=== PATIENT | female | born 1975 | race Caucasian/White ===

== ENCOUNTER 2017-09-02 14:50 | Observation (INO) ==
[2017-09-02 15:12] LABS: Bilirubin,Urine Negative (Negative); Blood,Urine Negative (Negative); Clarity,Urine Clear (Clear); Color,Urine Yellow (Yellow); Glucose,Urine (UA) 500 mg/dL (Normal); Ketones,Urine Negative (Negative); Leukocyte Esterase,Urine Negative (Negative); Nitrite,Urine Negative (Negative); Protein,Urine Negative (Neg-Trace); Specific Gravity,Urine 1.018 (1.010-1.025); Urobilinogen,Urine Normal (Normal)
[2017-09-02 16:13] LABS: Basophils % 0.2 %; Eosinophils % 0.9 %; Hematocrit 39.9 % (35.3-44.9); Immature Granulocytes % 0.2 % (0-4); Lymphocytes # 1.4 K/mcL (0.6-4.6); Lymphocytes % 33.4 %; Mean Corpuscular HGB Conc 35.1 g/dL (31.6-35.5); Mean Corpuscular Hemoglobin 31.5 pg (28.0-33.3); Mean Corpuscular Volume 89.9 fL (83.0-100.0); Mean Platelet Volume 12.1 fL (9.4-12.4); Monocytes # 0.3 K/mcL (0.0-1.3); Monocytes % 6.1 %; Neutrophils # 2.6 K/mcL (1.6-8.9); Platelet Count 88 K/mcL (140-400); Red Blood Count 4.44 M/mcL (3.82-4.97); Red Cell Distribution Width 13.6 % (11.5-14.5); Segmented Neutrophils % 59.2 %
[2017-09-02] MEDS ORDERED: Isovue-370 500 ML INFUS..BTL IV ONE (16:28)
[2017-09-02] MEDS ORDERED: *HR* Morphine 2 MG/ML SYRINGE IVP ONE (16:28)
--- NOTE | 2017-09-02 16:33 | Emergency Department Note ---
Disposition Clinical Impression: Epigastric pain Vomiting Qualifiers: Vomiting type: unspecified Vomiting Intractability: intractable Nausea presence : with nausea Qualified Code(s): R11.2 - Nausea with vomiting, unspecified Diarrhea Qualifiers: Diarrhea type: unspecified type Qualified Code(s): R19.7 - Diarrhea, unspecified Disposition: Admitted As Inpatient Condition: Good Referrals: An Victor [Primary Care Provider] - Forms: ED Satisfaction Letter, Work/School Release Time of Disposition: 19:58 Abdominal Pain HPI - General Chief Complaint: ED Abdominal Pain Stated Complaint: "kidney stones" Time Seen by Provider: 09/02/17 15:44 Source: patient Mode of arrival: ambulatory Limitations: no limitations Nursing Notes Reviewed: Yes Vital Signs Reviewed: Yes - History of Present Illness HPI Narrative: This is a 41-year-old female who complains of nausea with vomiting and diarrhea for the last 14 days. She also states that she was diagnosed with a urinary infection and hospitalist. She saw her urologist today, and was told that if her symptoms did not improve she should come to the emergency department. She states she has had dysuria for 14 days as well. Pain Scale: 10 - Related Data Home Medications Medication Instructions Recorded Confirmed Insulin Glargine,Hum.rec.anlog 20 units SQ HS 11/06/14 08/21/15 [Lantus Solostar] Liraglutide [Victoza 2-[place]] 1.8 mg SQ QAM 11/06/14 08/21/15 Previous Rx's Medication Instructions Recorded Albuterol Sulfate [Albuterol 2 puff IH Q6HR PRN #1 hfa.aer.ad 04/13/16 Inhaler] Benzonatate [Tessalon] 100 - 200 mg PO TID PRN #30 capsule 04/13/16 Cyclobenzaprine [Flexeril] 10 mg PO HS #15 tablet 05/24/17 Ibuprofen [Motrin] 800 mg PO Q8HR #30 tablet 05/24/17 Naproxen [Naprosyn] 250 mg PO BID PRN #6 tablet 08/06/17 Allergies Allergy/AdvReac Type Severity Reaction Status Date / Time cephalexin [From Keflex] Allergy Dry Mucus Verified 08/13/17 17:31 Membranes All systems ED: reviewed and negative except as stated. Review of Systems: As Per HPI Gastrointestinal: Reports: abdominal pain, nausea, vomiting, diarrhea ( Abdominal pain is right upper quadrant, epigastric, and left upper quadrant) Abdominal Pain PMH - Past Medical History Medical history: Reports: arthritis, asthma, cirrhosis, CVA, diabetes, fibromyalgia, GERD, kidney stones, liver disease Female Surgical History: Reports: appendectomy, cholecystectomy, hysterectomy, orthopedic, other OPERATIONAL ASSISTANT history: Reports: no OPERATIONAL ASSISTANT history Psychiatric history: Reports: anxiety, other - Social History Smoking status: Never smoker Alcohol use: Reports: none Drug use: Reports: none Physical Exam - General Limitations: no limitations General appearance: alert, in no apparent distress - Head Head exam: atraumatic, normocephalic, normal inspection - Eye Eye exam: Present: normal appearance, PERRL, EOMI - Neck Neck exam: Present: normal inspection, full ROM, trachea midline - Chest Chest inspection: Present: normal inspection, symmetric chest wall rise - Respiratory Respiratory exam: Present: normal lung sounds bilaterally - Cardiovascular Cardiovascular exam: Present: regular rate, normal rhythm, normal heart sounds - Abdominal Exam Abdominal exam: Present: soft, tenderness Abdominal tenderness: Present: RUQ, LUQ, epigastrium. Absent: RLQ, LLQ, suprapubic - Extremities Exam Extremities exam: Present: normal inspection, full ROM. Absent: tenderness, pedal edema - Back Exam Back exam: Absent: CVA tenderness (R), CVA tenderness (L) - Neurological Exam Neurological exam: Present: alert, oriented X3 - Psychiatric Psychiatric exam: Present: normal affect, normal mood - Skin Skin exam: Present: warm, dry, intact, normal color Course Course Narrative: This is a 41-year-old female with report of nausea, vomiting, diarrhea for 14 days dysuria for the same time. She has right upper quadrant, epigastric, and less left upper quadrant tenderness. Vital Signs Temperature 98.3 F 09/02/17 14:52 Pulse Rate 58 09/02/17 14:52 Respiratory Rate 18 09/02/17 14:52 Blood Pressure 169/89 09/02/17 14:52 O2 Sat by Pulse Oximetry 100 09/02/17 14:52 Temperature 98.3 F 09/02/17 16:24 Pulse Rate 58 09/02/17 16:24 Respiratory Rate 18 09/02/17 16:24 Blood Pressure 169/89 09/02/17 16:24 O2 Sat by Pulse Oximetry 100 09/02/17 16:24 Oxygen Delivery Oxygen Delivery Room Air Abdominal Pain - MDM Narrative Medical decision making narrative: This is a 41-year-old female with complaint of epigastric pain and nausea vomiting and diarrhea for 14 days. She also reports dysuria for 14 days. It turns out she has a very complicated medical history. Labs were pretty unremarkable except for slight hypokalemia of 3.4. No evidence of serious illness or urinary infection CT abdomen/pelvis showed no evidence of ureteral issues and no other acute pathology except for cirrhosis, which she knows about In the context of cirrhosis, loperamide is a poor choice for treatment. I discussed her case with the on-call hospitalist, who accepted her for admission to observation for additional symptomatic treatment - Lab Data Lab results reviewed: Yes I reviewed the patient's lab results. Lab results narrative: CBC was unremarkable BMP shows slight hypokalemia at 3.4 LFT showed AST elevated at 90 a LT elevated at 75 UA showed glucose but no evidence of UTI Result diagrams: 09/02/17 16:00 09/02/17 16:00 Lab Results 09/02/17 09/02/17 09/02/17 Range/Units 15:00 16:00 16:00 WBC 4.3 (4.3-11.1) K/mcL RBC 4.44 (3.82-4.97) M/mcL Hgb 14.0 (11.5-15.4) g/dL Hct 39.9 (35.3-44.9) % MCV 89.9 (83.0-100.0) fL MCH 31.5 (28.0-33.3) pg MCHC 35.1 (31.6-35.5) g/dL RDW 13.6 (11.5-14.5) % Plt Count 88 L (140-400) K/mcL MPV 12.1 (9.4-12.4) fL Immature Gran % 0.2 (0-4) % Seg Neutrophils % 59.2 % Lymphocytes % 33.4 % Monocytes % 6.1 % Eosinophils % 0.9 % Basophils % 0.2 % Neutrophils # 2.6 (1.6-8.9) K/mcL Lymphocytes # 1.4 (0.6-4.6) K/mcL Monocytes # 0.3 (0.0-1.3) K/mcL Eosinophils # 0.0 (0.0-0.6) K/mcL Basophils # 0.0 (0.0-0.2) K/mcL Sodium 136 (136-145) mEq/L Potassium 3.4 L (3.5-5.1) mEq/L Chloride 106 (98-107) mEq/L Carbon Dioxide 25 (23-29) mEq/L BUN 7 (6-20) mg/dL Creatinine 0.66 (0.60-1.20) mg/dL Est GFR ( Amer) > 60 (> 60) Est GFR (Non-Af Amer) > 60 (> 60) BUN/Creatinine Ratio 11 (6-26) Glucose 367 H (70-105) mg/dL Calculated Osmolality 295 (280-300) Calcium 9.1 (8.6-10.3) mg/dL Total Bilirubin 0.7 (0.3-1.0) mg/dL Direct Bilirubin 0.3 H (0.0-0.2) mg/dL Indirect Bilirubin 0.4 (0.0-1.2) mg/dL AST 90 H (13-39) Units/L ALT 75 H (7-52) Units/L Alkaline Phosphatase 124 H (34-104) Units/L Serum Total Protein 6.4 (6.4-8.9) g/dL Albumin 2.9 L (3.5-5.7) g/dL Globulin 3.5 (2.4-3.5) g/dL Albumin/Globulin Ratio 0.8 L (1.1-2.2) Lipase 73 (11-82) Units/L Urine Color Yellow (Yellow) Urine Clarity Clear (Clear) Urine pH 7.0 (5.0-8.0) pH Units Ur Specific [place] 1.018 (1.010-1.025) Urine Protein Negative (Neg-Trace) mg/dL Urine Glucose (UA) 500 H (Normal) mg/dL Urine Ketones Negative (Negative) mg/dL Urine Blood Negative (Negative) Urine Nitrite Negative (Negative) Urine Bilirubin Negative (Negative) Urine Urobilinogen Normal (Normal) mg/dL Ur Leukocyte Esterase Negative (Negative) Ur Culture Indicated? NO (NO) - Radiology Data Radiology results reviewed: Yes I reviewed the patient's radiology results. CT abdomen/pelvis showed tiny stones in the bladder but no evidence of ureteral problems and no other acute process
[2017-09-02 16:47] LABS: Alanine Aminotransferase 75 Units/L (7-52); Albumin 2.9 g/dL (3.5-5.7); Albumin/Globulin Ratio 0.8 (1.1-2.2); Alkaline Phosphatase 124 Units/L (34-104); Aspartate Amino Transferase 90 Units/L (13-39); BUN/Creatinine Ratio 11 (6-26); Bilirubin,Direct 0.3 mg/dL (0.0-0.2); Bilirubin,Indirect 0.4 mg/dL (0.0-1.2); Bilirubin,Total 0.7 mg/dL (0.3-1.0); Blood Urea Nitrogen 7 mg/dL (6-20); Calcium 9.1 mg/dL (8.6-10.3); Carbon Dioxide 25 mEq/L (23-29); Chloride 106 mEq/L (98-107); Globulin 3.5 g/dL (2.4-3.5); Glucose 367 mg/dL (70-105); Lipase 73 Units/L (11-82); Osmolality,Calculated 295 (280-300); Potassium 3.4 mEq/L (3.5-5.1); Sodium 136 mEq/L (136-145); Total Protein 6.4 g/dL (6.4-8.9); eGFR For Non-African Americans > 60 (> 60)
[2017-09-02] MEDS ORDERED: Promethazine 25 MG in 0.9 % Sodium Chloride 50 ML IVPB ONE (19:47)
[2017-09-02] MEDS ORDERED: Ondansetron 4 MG/2 ML VIAL IVP ONE (19:47)
[2017-09-02] MEDS ORDERED: 0.9 % Sodium Chloride 1,000 ML IVC ONE (19:54)
--- NOTE | 2017-09-02 20:21 | Internal Med History&Physical ---
<Carlos Santos - Last Filed: 09/02/17 22:41> Date of Encounter: 09/02/17 Time of Encounter: 20:19 Internal Medicine - H&P: HPI Chief complaint: Abd pain Admitted From: Home History of present illness: Ms. Dasilva is a 41 year old female with a PMH of Lupus, cirrhosis due to REYES, CVA without deficits, diabetes mellitus type 2, fibromyalgia, GERD, kidney stones, and obesity presented c/o rash, chills, lightheadedness, nausea, vomiting, and dysuria for the last 14 days. Pain is intermittent, located in the epigastric and RUQ area, and does not radiate. She reports associated tachycardia, SOB, anorexia, 12 lbs weight loss, and marijuana use daily to help alleviate the symptoms. Hot showers do not help with the nausea and vomiting and patient denies history of cannabinoid cyclic vomiting syndrome in the past. She reports one episode of blood tingled stool and melena. Last EGD revealed esophagitis and she had two colon polyps removed in the past. She no longer takes Prednisone for Lupus due to hyperglycemia and poorly controlled diabetes. The rash is located under her pannus and she denies history of yeast infections in the past from antibiotic uses. Patient also has a smaller abrasion on her right calf from a cat scratch. Her cat is vaccinated. She was reportedly diagnosed with a urinary infection by her urologist, stopped Bactrim after 3 doses due to vomiting, and was told that if her symptoms did not improve she should come to the emergency department. Patient denies fever, CP, hematemsis, recent travel, sick contacts, or leg edema. Past Med Surg Social Fam HX - Past Medical History Medical history: arthritis, asthma, cirrhosis (REYES), CVA, diabetes (DM Type 2) , fibromyalgia, GERD, kidney stones, liver disease Additional medical history: lupus Psychiatric history: anxiety, other - Past Surgical History Surgical History: appendectomy, cholecystectomy, hysterectomy, other Additional surgical history: tumor removed from neck - Social History Smoking Status: Former smoker (quit in 2013) Smokeless Tobacco Status: No Alcohol use: none (quit in 2015) Drug use: marijuana (Daily) Occupational status: disabled (Due to Lupus) Current living situation: Home, With Family Activity Level: Independent ambulation Recent Out of Country Travel Within the Last 8 Weeks: No Exposure or Possible Exposure to Illness During Travel: No - Family History Mother Living Status: Hx Family Cardiac Disorders: Yes (CAD) Hx Family Endocrine Disorder: Yes (thyroid) Hx Family Medical Disorders: Yes (REYES) Father Hx Family Cardiac Disorders: Yes (CAD) Hx Family Respiratory Disorders: Yes (COPD) Hx Family Medical Disorders: Yes (Prostate) Internal Medicine - H&P: Meds RX: No Known Home Drugs 09/02/17 [History] 3 Allergy/AdvReac Type Severity Reaction Status Date / Time cephalexin [From Keflex] Allergy Dry Mucus Verified 08/13/17 17:31 Membranes All Systems PM: A 10-system review of systems was performed and is negative for pertinent findings except as documented above in the HPI. - Constitutional Constitutional: anorexia, chills, fatigue, lethargy, weakness, weight loss (12 lbs), no fever(s) - EENT Eyes: no blurry vision, no diplopia Nose, mouth and throat: no sinus pain, no sore throat - Cardiovascular Cardiovascular ROS IM: dyspnea, lightheadedness, palpitations, no chest pain, no edema, no syncope - Respiratory Respiratory: dyspnea, no cough, no wheezing - Gastrointestinal Gastrointestinal: abdominal pain, cramping, diarrhea, heartburn, hematochezia, melena, nausea, vomiting, no constipation, no hematemesis - Genitourinary Genitourinary: dysuria, no hematuria, no urinary frequency, no urinary urgency Menstruation: post hysterectomy - Musculoskeletal Musculoskeletal ROS IM: no arthralgias, no limited range of motion, no numbness , no tingling - Integumentary Integumentary IM: erythema, new lesions, rash, no skin ulcer - Neurological Neurological ROS: dizziness, weakness, no abnormal gait, no numbness, no tingling - Psychiatric Psychiatric: no anxiety, no depression - Endocrine Endocrine IM: fatigue, no flushing, no polyphagia, no polyuria - Hematologic/Lymphatic Hematologic/Lymphatic: no easy bleeding, no easy bruising - Constitutional Vitals: Temp Pulse Resp BP Pulse Ox 98.3 F 58 18 169/89 100 09/02/17 16:24 09/02/17 16:24 09/02/17 16:24 09/02/17 16:24 09/02/17 16:24 General appearance: Present: cooperative, A&O X 3, pleasant, no acute distress, obese, answers questions appropriately - Head Head exam: Present: atraumatic, normocephalic - Eye Eye exam: Present: EOMI, conjuntiva pink, sclera anicteric - ENT ENT exam: Present: mucous membranes dry, normal oropharynx - Neck Neck exam general surgery: Present: supple, trachea midline. Absent: lymphadenopathy - Respiratory Respiratory exam: Present: CTAB. Absent: accessory muscle use, rales, rhonchi, wheezes - Cardiovascular Cardiovascular exam: Present: RRR, +S1, +S2. Absent: diastolic murmur, gallop, rubs, systolic murmur - GI/Abdominal GI/Abdominal exam: Present: guarding, normal bowel sounds, soft, tenderness ( epigastric), no peritoneal signs. Absent: distended - Extremities Exam Extremities exam: Present: warm, radial pulses palpable and symmetrical. Absent : calf tenderness, cyanotic, pedal edema - Back Exam Back exam: Present: normal inspection. Absent: paraspinal tenderness, tenderness - Neurological Exam Neurological exam: Present: alert, CN II-XII intact, oriented X3, no focal deficits. Absent: pronater drift, facial droop, speech deficit - Psychiatric Psychiatric exam: Present: normal affect, normal mood - Skin Skin exam: Present: erythema (foul smelling eythema under pannus/ suprapubic region, small area of erythema right anterior levy without swelling or proximal streaking, erythemaous patches on left face ) Internal Med - H&P Results - Labs CBC & Chem 7: 09/02/17 16:00 09/02/17 16:00 - Pulse Oximetry Interpretation Digit-Finger O2 Sat by Pulse Oximetry: 100 (On room air) - Impressions ITS Impressions Abdomen/Pelvis CT 09/02/17 16:28 IMPRESSION: Nodular contour of liver consistent with cirrhosis. Portal venous hypertension with mild splenomegaly and upper abdominal varices. Tiny bilateral nonobstructing renal calculi. No acute obstructive uropathy. 2.6 cm cyst/ dominant follicle in the left ovary. D/ / Hong Palomino MD / Hong Palomino MD Interpreting Provider: Hong Palomino MD - Assessment and plan (1) Cannabinoid hyperemesis syndrome Current Visit: Yes Status: Suspected Assessment and plan: Patient presents with nausea and vomiting for the last 14 days. Pain is located in the epigastric and RUQ area, and does not radiate. She reports associated marijuana use daily to help alleviate the symptoms. Hot showers do not help with the nausea and vomiting Patient denies history of cannabinoid cyclic vomiting syndrome in the past. Continue IV hydration Continue Phenergan IV Trial Haldol Continue close monitoring (2) Liver cirrhosis secondary to nonalcoholic steatohepatitis (REYES) Current Visit: No Status: Chronic Assessment and plan: LFTs elevated Continue monitoring (3) GERD (gastroesophageal reflux disease) Current Visit: Yes Status: Chronic Assessment and plan: Last EGD revealed esophagitis Continue PPI Qualifiers: Esophagitis presence: with esophagitis Qualified Code(s): K21.0 - Gastro- esophageal reflux disease with esophagitis (4) Yeast infection of the skin Current Visit: Yes Status: Acute Assessment and plan: Foul smelling eythematous region under pannus/ suprapubic region Patient reports recent antibiotic use Start Nystatin TID (5) SLE (systemic lupus erythematosus) Current Visit: No Status: Chronic Assessment and plan: Patient stopped Prednisone use for lupus secondary to hyperglycemia Continue monitoring Qualifiers: Systemic lupus erythematosus type: unspecified Systemic lupus erythematosus organ involvement: unspecified Qualified Code(s): M32.9 - Systemic lupus erythematosus, unspecified (6) DM type 2 (diabetes mellitus, type 2) Current Visit: Yes Status: Acute Assessment and plan: Hemoglobin A1c level 10.2% on 08/21/15 Repeat hemoglobin A1c level pending Patient stopped Prednisone use for lupus secondary to hyperglycemia Continue basal and SSI Continue D5 + normal saline while NPO status Accu-Cheks every 6 hours Continue monitoring Qualifiers: Diabetes mellitus skilled nursing insulin use: unspecified skilled nursing insulin use status Diabetes mellitus complication status: without complication Qualified Code(s): E11.9 - Type 2 diabetes mellitus without complications (7) Fibromyalgia Current Visit: No Status: Chronic Assessment and plan: Outpatient monitoring (8) History of CVA (cerebrovascular accident) without residual deficits Current Visit: No Status: Chronic Assessment and plan: Continue monitoring (9) History of kidney stones Current Visit: No Status: Chronic Assessment and plan: CT abdomen/pelvis revealed tiny bilateral nonobstructing renal calculi. No acute obstructive uropathy. (10) Hypophosphatemia Current Visit: Yes Status: Acute Assessment and plan: Phosphorus level 2.1 Supplemental phosphorus Continue monitoring (11) Hypomagnesemia Current Visit: Yes Status: Acute Assessment and plan: Mag level 1.6 Supplement magnesium Continue monitoring (12) Obesity (BMI 30-39.9) Current Visit: Yes Status: Chronic Assessment and plan: Lifestyle modification (13) DVT prophylaxis Current Visit: Yes Status: Acute Assessment and plan: Heparin subcutaneous TID (14) Hypokalemia Current Visit: Yes Status: Acute Assessment and plan: Potassium level 3.4 Supplement potassium Continue monitoring - Time Spent With Patient Total time spent is greater than 50% in coordination of care (as documented) at patient's floor/unit and/or counseling patient: <Robb Tran P - Last Filed: 09/03/17 00:36> Date of Encounter: 09/03/17 Internal Medicine - H&P: HPI History of present illness: Ms. Dasilva is a 41 year old female All Systems PM: A 10-system review of systems was performed and is negative for pertinent findings except as documented above in the HPI. - Constitutional Vitals: Temp Pulse Resp BP Pulse Ox 98.3 F 58 14 131/79 97 09/02/17 21:07 09/02/17 21:07 09/02/17 21:07 09/02/17 21:07 09/02/17 21:07 Internal Med - H&P Results - Labs CBC & Chem 7: 09/02/17 16:00 09/02/17 16:00 Labs: Cardiac Enzymes 09/02/17 Range/Units 22:30 Troponin I < 0.03 (< 0.04) ng/mL - Attending Attestation I have seen the patient and performed my own physical examination. I have discussed the case with the admitting resident, and I agree with his assessment and plan of care as documented in his H&P. Briefly, patient admitted for 2- week history of nausea, vomiting, and diarrhea. She recently completed antibiotic course for UTI. She has had some anorexia. She has a history of daily marijuana use. She had single episode of blood tinged sputum and melena. At the time of my examination, patient was resting comfortably in bed. She states that abdominal pain is improved with analgesics. She denies any nausea/ vomiting at this time. We will admit for observation. We will continue pain control with analgesics and nausea/vomiting control with anti-emetics. We will start of PPI. We will obtain hemoccult. She had some hyperglycemia, hypokalemia, hypophosphatemia, and hypomagnesemia. We will start home insulin regimen with sliding scale and replete electrolytes. We will recheck labwork in AM. Consider GI consult in AM if no improvement in symptoms. - Assessment and plan (1) SLE (systemic lupus erythematosus) Current Visit: No Status: Chronic Qualifiers: Systemic lupus erythematosus type: unspecified Systemic lupus erythematosus organ involvement: unspecified Qualified Code(s): M32.9 - Systemic lupus erythematosus, unspecified (2) Liver cirrhosis secondary to nonalcoholic steatohepatitis (REYES) Current Visit: No Status: Chronic (3) History of CVA (cerebrovascular accident) without residual deficits Current Visit: No Status: Chronic (4) DM type 2 (diabetes mellitus, type 2) Current Visit: Yes Status: Acute Qualifiers: Diabetes mellitus watermelon harvesting supervisor insulin use: unspecified skilled nursing insulin use status Diabetes mellitus complication status: without complication Qualified Code(s): E11.9 - Type 2 diabetes mellitus without complications (5) Fibromyalgia Current Visit: No Status: Chronic (6) GERD (gastroesophageal reflux disease) Current Visit: Yes Status: Chronic Qualifiers: Esophagitis presence: with esophagitis Qualified Code(s): K21.0 - Gastro- esophageal reflux disease with esophagitis (7) History of kidney stones Current Visit: No Status: Chronic (8) Obesity (BMI 30-39.9) Current Visit: Yes Status: Chronic (9) DVT prophylaxis Current Visit: Yes Status: Acute (10) Cannabinoid hyperemesis syndrome Current Visit: Yes Status: Suspected (11) Yeast infection of the skin Current Visit: Yes Status: Acute (12) Hypophosphatemia Current Visit: Yes Status: Acute (13) Hypomagnesemia Current Visit: Yes Status: Acute (14) Hypokalemia Current Visit: Yes Status: Acute - Time Spent With Patient Total time spent is greater than 50% in coordination of care (as documented) at patient's floor/unit and/or counseling patient:
[2017-09-02] MEDS ORDERED: Famotidine 20 MG TABLET PO SCH (21:00)
[2017-09-02] MEDS ORDERED: Haloperidol Lactate 5 MG/ML VIAL IVP ONE (21:11)
[2017-09-02] MEDS ORDERED: Dextrose Gel 15 GM/37.5 ML TUBE PO PRN ×2 (21:11)
[2017-09-02] MEDS ORDERED: D5% in Water 1,000 ML IVC PRN (21:11)
[2017-09-02] MEDS ORDERED: Naloxone 0.4 MG/ML INJ IVP PRN (21:11)
[2017-09-02] MEDS ORDERED: *HR* Dextrose 50 % in Water (Syg) 50 ML SYRINGE IVP PRN (21:11)
[2017-09-02] MEDS ORDERED: Acetaminophen 325 MG TABLET PO PRN (21:11)
[2017-09-02] MEDS ORDERED: Potassium Chloride 40 MEQ, Lidocaine 1% 2 ML in D5% in Water 500 ML IVPB ONE (21:20)
[2017-09-02 21:39] LABS: Magnesium 1.6 mg/dL (1.6-2.6); Phosphorous 2.1 mg/dL (2.7-4.5)
[2017-09-02 21:59] LABS: Estimated Average Glucose 266 mg/dl; Hemoglobin A1C 10.9 %
[2017-09-02] MEDS: *HR* Heparin 5,000 UNIT/ML VIAL SQ SCH (22:32)
[2017-09-02] MEDS: Nystatin POWDER 30 GM BOTTLE TP SCH (22:36)
[2017-09-02] MEDS: Insulin DETEMIR 100 UNIT/ML X5UNITS SQ SCH (22:56)
[2017-09-02] MEDS: OXYCODONE Oral CONC 10 MG/0.5 ML ORAL.SYG SL PRN (23:13)
[2017-09-03] MEDS: Insulin LISPRO 300 UNITS/3 ML VIAL SQ SCH ×5 (00:51→22:27)
[2017-09-03 06:26] LABS: Red Cell Distribution Width 13.9 % (11.5-14.5)
[2017-09-03] MEDS: OXYCODONE Oral CONC 10 MG/0.5 ML ORAL.SYG SL PRN ×2 (06:26→13:40)
[2017-09-03 06:28] LABS: Hemoglobin 13.4 g/dL (11.5-15.4); Immature Platelets 10.1 % (1.1-6.1); Mean Corpuscular HGB Conc 35.3 g/dL (31.6-35.5); Mean Corpuscular Hemoglobin 32.8 pg (28.0-33.3); Mean Corpuscular Volume 93.1 fL (83.0-100.0); Mean Platelet Volume 12.8 fL (9.4-12.4); Red Blood Count 4.08 M/mcL (3.82-4.97)
[2017-09-03] MEDS: *HR* Heparin 5,000 UNIT/ML VIAL SQ SCH ×3 (06:29→22:29)
[2017-09-03] MEDS: Pantoprazole 40 MG VIAL IVP SCH ×2 (06:30→18:32)
[2017-09-03 06:48] LABS: Troponin I < 0.03 ng/mL (< 0.04)
[2017-09-03 06:50] LABS: Alanine Aminotransferase 70 Units/L (7-52); Albumin 2.6 g/dL (3.5-5.7); Albumin/Globulin Ratio 0.9 (1.1-2.2); Alkaline Phosphatase 110 Units/L (34-104); Aspartate Amino Transferase 89 Units/L (13-39); BUN/Creatinine Ratio 10 (6-26); Bilirubin,Total 0.7 mg/dL (0.3-1.0); Blood Urea Nitrogen 6 mg/dL (6-20); Calcium 8.3 mg/dL (8.6-10.3); Carbon Dioxide 22 mEq/L (23-29); Chloride 112 mEq/L (98-107); Glucose 154 mg/dL (70-105); Osmolality,Calculated 287 (280-300); Potassium 3.8 mEq/L (3.5-5.1); Sodium 138 mEq/L (136-145); Total Protein 5.6 g/dL (6.4-8.9); eGFR For Non-African Americans > 60 (> 60)
[2017-09-03] MEDS ORDERED: Famotidine 20 MG TABLET PO SCH (09:00)
[2017-09-03] MEDS: Nystatin POWDER 30 GM BOTTLE TP SCH ×3 (10:11→22:28)
[2017-09-03 13:05] LABS: Bilirubin,Urine Negative (Negative); Blood,Urine Negative (Negative); Color,Urine Yellow (Yellow); Glucose,Urine (UA) Normal (Normal); Ketones,Urine Negative (Negative); Leukocyte Esterase,Urine Negative (Negative); Nitrite,Urine Negative (Negative); Protein,Urine Negative (Neg-Trace); Specific Gravity,Urine 1.021 (1.010-1.025); Urobilinogen,Urine Normal (Normal)
[2017-09-03 13:07] LABS: Bacteria,Urine Few per hpf (None-Few); Hyaline Casts,Urine None Seen per lpf (None-Few); Squamous Epithelial Cell,Urine Many per lpf (None-Few)
[2017-09-03 13:08] LABS: Clarity,Urine Clear (Clear)
--- NOTE | 2017-09-03 14:07 | Event Note ---
Date of Encounter: 09/03/17 Time of Encounter: 12:30 I have performed a face- to face examination of this patient and participated in formulation of randolph components of Assessment and plan with the [employer]. Review this is a 41-year-old female who has a long-standing history of lupus and nonalcoholic steatohepatitis, with early evidence of cirrhotic changes and a recent EGD about 2 months ago which did not show any evidence of variceal changes who came in for nausea and vomiting which has been going on for last 2 weeks duration. On examination she has mild tenderness to palpation diffusely on her abdomen and appears visibly upset due to ongoing nausea. She also has a history of nonobstructing renal calculi which she has been seeing a urologist for. Patient has at least 3 factors that are contributing to her chronic and worsening hyperemesis-uncontrolled diabetes because of inability to afford the medication with potentially an element of gastroparesis, potentially underlying gastroesophageal reflux disease, early stages of liver cirrhosis and multiple years of cannabinoid use to name a few Her last HbA1c is 10. Patient has not been able to afford her Lantus or endochondroma for many months and is now not on any form of insulin. 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 I doubt there is a underlying sepsis source at this point but we will await urine culture and urinalysis in detail .for now and monitor off antibiotics Rest of the assessment and plan as per nurse practitioner documentation-please refer to the full note from today dated 09/03/2017
--- NOTE | 2017-09-03 14:34 | Internal Med Progress Note ---
Date of Encounter: 09/03/17 Time of Encounter: 14:29 - Assessment and plan (1) Cannabinoid hyperemesis syndrome Current Visit: Yes Status: Suspected Assessment and plan: 41-year-old female with past medical history poorly controlled diabetes mellitus SLE, fibromyalgia, kidney stone, GERD, liver cirrhosis secondary to Reyes, and chronic use of marijuana presented with two-week history of nausea, vomiting, and abdominal pain. Patient firmly believes her symptoms were attributed to kidney stones, was seen by a urologist yesterday and was instructed to come to the ED if symptoms get worse. CT abdomen was done at the ED which revealed liver cirrhosis, and multiple tiny renal stones. She does report a history of chronic use and marijuana. She was also concerned that Lupus was flared up as she noticed rash on her face. She had the GI workup including EGD and colonoscopy within 3 months which she reported were insignificant. - Cannabinoid hyperemesis syndrome was suspected, however, patient reported never had symptoms until recently. - Given her long-term uncontrolled diabetes, gastroparesis was suspected, we will try regular and monitor symptoms relief, may consult GI for further workup. - Continue supportive care including IV fluid, medications for nausea/vomiting. (2) SLE (systemic lupus erythematosus) Current Visit: No Status: Chronic Assessment and plan: Patient stopped Prednisone use for lupus secondary to hyperglycemia She was instructed to follow-up with her rheumatology. Qualifiers: Systemic lupus erythematosus type: unspecified Systemic lupus erythematosus organ involvement: unspecified Qualified Code(s): M32.9 - Systemic lupus erythematosus, unspecified (3) Liver cirrhosis secondary to nonalcoholic steatohepatitis (REYES) Current Visit: No Status: Chronic Assessment and plan: LFTs elevated. She has had a sawmill or timber yard worker at the [facility] whom she usually follows with. She may benefit from statins, actos, and Vit E for slowing the liver fibrosis process by REYES, although there is no strong evidences per current clinical study. (4) History of CVA (cerebrovascular accident) without residual deficits Current Visit: No Status: Chronic Assessment and plan: Continue monitoring (5) DM type 2 (diabetes mellitus, type 2) Current Visit: Yes Status: Acute Assessment and plan: A1c 10.9 and she reported recent use of steroid. continue home insulin dose and started on insulin sliding scale. Pt instructed to check BG at home and f/u with PCP for optimal control. Qualifiers: Diabetes mellitus dedicated intermodal truck driver insulin use: unspecified dedicated intermodal truck driver insulin use status Diabetes mellitus complication status: without complication Qualified Code(s): E11.9 - Type 2 diabetes mellitus without complications (6) Fibromyalgia Current Visit: No Status: Chronic Assessment and plan: Outpatient monitoring (7) GERD (gastroesophageal reflux disease) Current Visit: Yes Status: Chronic Assessment and plan: Last EGD revealed esophagitis Continue PPI Qualifiers: Esophagitis presence: with esophagitis Qualified Code(s): K21.0 - Gastro- esophageal reflux disease with esophagitis (8) History of kidney stones Current Visit: No Status: Chronic Assessment and plan: CT abdomen/pelvis revealed tiny bilateral nonobstructing renal calculi. No acute obstructive uropathy. (9) Obesity (BMI 30-39.9) Current Visit: Yes Status: Chronic Assessment and plan: Lifestyle modification (10) Yeast infection of the skin Current Visit: Yes Status: Acute (11) Hypophosphatemia Current Visit: Yes Status: Resolved (12) Hypomagnesemia Current Visit: Yes Status: Resolved (13) Hypokalemia Current Visit: Yes Status: Resolved (14) DVT prophylaxis Current Visit: Yes Status: Acute Assessment and plan: Heparin subcutaneous TID - Time Spent With Patient Total time spent is greater than 50% in coordination of care (as documented) at patient's floor/unit and/or counseling patient: - Subjective Interval history: Pt seen and examined with in the room. She is upset and unhappy that nothing has been done for her abdominal pain and nausea/ vomiting. She just saw the Urologist yesterday for her kidney stone and was instructed to go to ED if abd pain persists. She reported a hx of struvite kidney stone and insisted that she is having UTI. She firmly believes that all her symptoms were caused by kidney stone and she reported recent passage a stone which she showed me a picture. - Constitutional Vitals: Temp Pulse Resp BP Pulse Ox 97.9 F 62 16 107/68 97 09/03/17 12:04 09/03/17 12:04 09/03/17 12:04 09/03/17 12:04 09/03/17 12:04 General appearance: Present: cooperative, A&O X 3, pleasant, no acute distress, obese, answers questions appropriately Exam: PHYSICAL EXAMINATION: GENERAL APPEARANCE: The patient is alert, oriented and in no acute distress. HEENT: Head is normocephalic. The sinuses are nontender. Pupils are equal and reactive. The nares are patent. Oropharynx clear without lesions. NECK: Supple without lymphadenopathy. HEART: Regular rate and rhythm. LUNGS: No crackles or wheezes are heard. ABDOMEN: Soft, nontender, nondistended with good bowel sounds heard. Inguinal area is normal. EXTREMITIES: Without cyanosis, clubbing or edema. NEUROLOGICAL: Gross nonfocal. SKIN: Warm and dry without any rash. Internal Medicine: Result - Labs CBC & Chem 7: 09/03/17 05:40 09/03/17 05:40 Labs: Short CBC 09/03/17 Range/Units 05:40 WBC 4.4 (4.3-11.1) K/mcL Hgb 13.4 (11.5-15.4) g/dL Hct 38.0 (35.3-44.9) % Plt Count 73 L (140-400) K/mcL BMP 09/03/17 05:40 Sodium 138 Potassium 3.8 Chloride 112 H Carbon Dioxide 22 L BUN 6 Creatinine 0.63 Glucose 154 H Calcium 8.3 L Cardiac Enzymes 09/02/17 09/03/17 Range/Units 22:30 05:40 Troponin I < 0.03 < 0.03 (< 0.04) ng/mL Liver Function 09/03/17 Range/Units 05:40 Total Bilirubin 0.7 (0.3-1.0) mg/dL AST 89 H (13-39) Units/L ALT 70 H (7-52) Units/L Alkaline Phosphatase 110 H (34-104) Units/L Albumin 2.6 L (3.5-5.7) g/dL Urine 09/03/17 Range/Units 12:47 Urine Color Yellow (Yellow) Urine Clarity Clear (Clear) Urine pH 6.0 (5.0-8.0) pH Units Ur Specific [place] 1.021 (1.010-1.025) Urine Protein Negative (Neg-Trace) mg/dL Urine Glucose (UA) Normal (Normal) mg/dL Consult Discharge Plan - Plan Referrals: An Victor [Primary Care Provider] -
[2017-09-03] MEDS: Metoclopramide 10 MG/2 ML VIAL IVP SCH ×2 (16:45→22:28)
[2017-09-03] MEDS: Ketorolac 15 MG/ML VIAL IVP PRN (18:31)
[2017-09-03] MEDS: Mag Hydrox/Al Hydrox/Simeth 30 ML UDC PO SCH (18:31)
[2017-09-03] MEDS: Insulin DETEMIR 100 UNIT/ML X5UNITS SQ SCH (22:27)
[2017-09-04] MEDS: Mag Hydrox/Al Hydrox/Simeth 30 ML UDC PO SCH ×4 (00:13→17:20)
[2017-09-04 06:46] LABS: Hematocrit 41.1 % (35.3-44.9)
[2017-09-04 06:48] LABS: Basophils % 0.6 %; Eosinophils # 0.1 K/mcL (0.0-0.6); Eosinophils % 1.9 %; Hemoglobin 14.6 g/dL (11.5-15.4); Immature Granulocytes % 1.3 % (0-4); Immature Platelets 10.5 % (1.1-6.1); Lymphocytes # 1.9 K/mcL (0.6-4.6); Lymphocytes % 41.3 %; Mean Corpuscular HGB Conc 35.5 g/dL (31.6-35.5); Mean Corpuscular Hemoglobin 32.7 pg (28.0-33.3); Mean Corpuscular Volume 91.9 fL (83.0-100.0); Mean Platelet Volume 12.3 fL (9.4-12.4); Monocytes # 0.3 K/mcL (0.0-1.3); Monocytes % 6.9 %; Red Blood Count 4.47 M/mcL (3.82-4.97); Red Cell Distribution Width 13.8 % (11.5-14.5)
[2017-09-04 06:52] LABS: Neutrophils # 2.3 K/mcL (1.6-8.9); Platelet Count 63 K/mcL (140-400)
[2017-09-04] MEDS: *HR* Heparin 5,000 UNIT/ML VIAL SQ SCH ×3 (06:52→22:02)
[2017-09-04] MEDS: Pantoprazole 40 MG VIAL IVP SCH ×2 (06:53→17:19)
[2017-09-04] MEDS: Ketorolac 15 MG/ML VIAL IVP PRN ×3 (06:53→22:10)
[2017-09-04] MEDS: OXYCODONE Oral CONC 10 MG/0.5 ML ORAL.SYG SL PRN (06:53)
[2017-09-04] MEDS: Insulin LISPRO 300 UNITS/3 ML VIAL SQ SCH ×4 (08:12→22:12)
[2017-09-04] MEDS: Metoclopramide 10 MG/2 ML VIAL IVP SCH ×2 (08:13→22:02)
[2017-09-04] MEDS: Nystatin POWDER 30 GM BOTTLE TP SCH ×3 (08:13→22:06)
[2017-09-04 09:07] LABS: BUN/Creatinine Ratio 12 (6-26); Blood Urea Nitrogen 7 mg/dL (6-20); Calcium 7.9 mg/dL (8.6-10.3); Carbon Dioxide 20 mEq/L (23-29); Chloride 112 mEq/L (98-107); Glucose 116 mg/dL (70-105); Osmolality,Calculated 283 (280-300); Sodium 137 mEq/L (136-145); eGFR For Non-African Americans > 60 (> 60)
--- NOTE | 2017-09-04 11:13 | Internal Med Progress Note ---
Date of Encounter: 09/04/17 Time of Encounter: 11:10 - Assessment and plan (1) Cannabinoid hyperemesis syndrome Current Visit: Yes Status: Suspected Assessment and plan: 41-year-old female with past medical history poorly controlled diabetes mellitus SLE, fibromyalgia, kidney stone, GERD, liver cirrhosis secondary to Reyes, and chronic use of marijuana presented with two-week history of nausea, vomiting, and abdominal pain. Patient firmly believes her symptoms were attributed to kidney stones, was seen by a urologist yesterday and was instructed to come to the ED if symptoms get worse. CT abdomen was done at the ED which revealed liver cirrhosis, and multiple tiny renal stones. She does report a history of chronic use and marijuana. She was also concerned that Lupus was flared up as she noticed rash on her face. She had the GI workup including EGD and colonoscopy within 3 months which she reported were insignificant. - Cannabinoid hyperemesis syndrome was suspected, however, patient reported never had symptoms until recently. - Given her long-term uncontrolled diabetes, gastroparesis was suspected, symptoms partially relieved with IV regular. GI consult for workup of gastroparesis. - Continue supportive care including IV fluid, medications for nausea/vomiting. (2) SLE (systemic lupus erythematosus) Current Visit: No Status: Chronic Assessment and plan: Patient stopped Prednisone use for lupus secondary to hyperglycemia. She was instructed to follow-up with her rheumatology. Qualifiers: Qualified Code(s): M32.9 - Systemic lupus erythematosus, unspecified (3) Liver cirrhosis secondary to nonalcoholic steatohepatitis (REYES) Current Visit: No Status: Chronic Assessment and plan: LFTs elevated. She has had a salesperson women's hats at the [facility] whom she usually follows with. She may benefit from statins, actos, and Vit E for slowing the liver fibrosis process by REYES, although there is no strong evidences per current clinical study. (4) History of CVA (cerebrovascular accident) without residual deficits Current Visit: No Status: Chronic Assessment and plan: Continue monitoring (5) DM type 2 (diabetes mellitus, type 2) Current Visit: Yes Status: Acute Assessment and plan: A1c 10.9 and she reported recent use of steroid. continue home insulin dose and started on insulin sliding scale. Pt instructed to check BG at home and f/u with PCP for optimal control. Qualifiers: Qualified Code(s): E11.9 - Type 2 diabetes mellitus without complications (6) Fibromyalgia Current Visit: No Status: Chronic Assessment and plan: Outpatient monitoring (7) GERD (gastroesophageal reflux disease) Current Visit: Yes Status: Chronic Assessment and plan: Last EGD revealed esophagitis Continue PPI Qualifiers: Qualified Code(s): K21.0 - Gastro-esophageal reflux disease with esophagitis (8) History of kidney stones Current Visit: No Status: Chronic Assessment and plan: CT abdomen/pelvis revealed tiny bilateral nonobstructing renal calculi. No acute obstructive uropathy. (9) Obesity (BMI 30-39.9) Current Visit: Yes Status: Chronic Assessment and plan: Lifestyle modification (10) Yeast infection of the skin Current Visit: Yes Status: Acute (11) Hypophosphatemia Current Visit: Yes Status: Resolved (12) Hypomagnesemia Current Visit: Yes Status: Resolved (13) Hypokalemia Current Visit: Yes Status: Resolved (14) DVT prophylaxis Current Visit: Yes Status: Acute Assessment and plan: Heparin subcutaneous TID - Time Spent With Patient Total time spent is greater than 50% in coordination of care (as documented) at patient's floor/unit and/or counseling patient: - Subjective Interval history: She was seen and examined in the room, she reported improved nausea and vomiting , has been able to tolerate liquid food. She denies diarrhea or abdominal pain. - Constitutional Vitals: Temp Pulse Resp BP Pulse Ox 97.6 F 61 16 121/76 98 09/04/17 10:45 09/04/17 10:45 09/04/17 10:45 09/04/17 10:45 09/04/17 10:45 General appearance: Present: cooperative, A&O X 3, pleasant, no acute distress, obese, answers questions appropriately Exam: PHYSICAL EXAMINATION: GENERAL APPEARANCE: The patient is alert, oriented and in no acute distress. HEENT: Head is normocephalic. The sinuses are nontender. Pupils are equal and reactive. The nares are patent. Oropharynx clear without lesions. NECK: Supple without lymphadenopathy. HEART: Regular rate and rhythm. LUNGS: No crackles or wheezes are heard. ABDOMEN: Soft, nontender, nondistended with good bowel sounds heard. Inguinal area is normal. EXTREMITIES: Without cyanosis, clubbing or edema. NEUROLOGICAL: Gross nonfocal. SKIN: Warm and dry without any rash. Internal Medicine: Result - Labs CBC & Chem 7: 09/04/17 06:36 09/04/17 08:26 Labs: Short CBC 09/04/17 Range/Units 06:36 WBC 4.7 (4.3-11.1) K/mcL Hgb 14.6 (11.5-15.4) g/dL Hct 41.1 (35.3-44.9) % Plt Count 63 L (140-400) K/mcL Neutrophils # 2.3 (1.6-8.9) K/mcL BMP 09/04/17 08:26 Sodium 137 Potassium 4.0 Chloride 112 H Carbon Dioxide 20 L BUN 7 Creatinine 0.59 L Glucose 116 H Calcium 7.9 L Urine 09/03/17 Range/Units 12:47 Urine Color Yellow (Yellow) Urine Clarity Clear (Clear) Urine pH 6.0 (5.0-8.0) pH Units Ur Specific [place] 1.021 (1.010-1.025) Urine Protein Negative (Neg-Trace) mg/dL Urine Glucose (UA) Normal (Normal) mg/dL Consult Discharge Plan - Plan Referrals: An Victor [Primary Care Provider] -
--- NOTE | 2017-09-04 11:14 | Gastroenterology Consult Note ---
<Jordan Damon - Last Filed: 09/04/17 14:29> Date of Encounter: 09/04/17 Time of Encounter: 11:06 - Assessment and plan (1) Vomiting Status: Acute Assessment and plan: - Patient reports intractable nausea and vomiting with approximately 5 episodes per day most frequently following meals - Patient is an uncontrolled diabetic and gastroparesis is in the differential. Hemoglobin A1c of 10.9% - Viral etiology is also a consideration as well as cannabinol and hyperemesis syndrome as below. May be an element of GERD as well - Patient reports improvement of symptoms with Zofran and Phenergan. Tolerated breakfast this morning Plan - Continue supportive care - Plan for EGD tomorrow as she has eaten today to further evaluate for reversible etiologies - Further discussion will be had with Dr. Cochran regarding further management Qualifiers: Vomiting type: unspecified Vomiting Intractability: intractable Nausea presence: with nausea Qualified Code(s): R11.2 - Nausea with vomiting, unspecified (2) Epigastric pain Status: Acute Assessment and plan: - Likely secondary to nausea, vomiting, retching as above - Patient does report improvement of her symptoms - Continue supportive treatment and management as above (3) Liver cirrhosis secondary to nonalcoholic steatohepatitis (DANGELO) Status: Chronic Assessment and plan: - Follows with director nursery school in [place] - Reports no history of complications including varices, hepatic failure, bleeding, infection - Upper abdominal varices demonstrated on CT scan emerged department. - Patient reports most recent EGD approximately 2 months ago with no evidence of varices at that time - Liver enzymes mildly elevated. Plan - We will undergo EGD for further evaluation of possible varices with possible banding - Continue to follow-up as outpatient with director nursery school (4) GERD (gastroesophageal reflux disease) Status: Chronic Assessment and plan: - Does not appear to be in current exacerbation - Continue home medications - Further recommendations pending evaluation on EGD Qualifiers: Esophagitis presence: with esophagitis Qualified Code(s): K21.0 - Gastro- esophageal reflux disease with esophagitis (5) Cannabinoid hyperemesis syndrome Status: Suspected Assessment and plan: - Less likely etiology at this time - Patient reports smoking daily marijuana however denies improvement with hot showers - More likely etiology is as above - Time Spent With Patient Total time spent is greater than 50% in coordination of care (as documented) at patient's floor/unit and/or counseling patient: GI History of Present Illness - Data of Consult Patient: new to practice Consult date: 09/04/17 Requesting Physician: Salvador Robb MD - Consult Narrative Reason for consult: N/v, DANGELO with cirrhosis History of present illness: Ms. Dasilva is a 41 year old female with past medical history of arthritis, asthma, cirrhosis secondary to Dangelo, CVA, uncontrolled type 2 diabetes, fibromyalgia, GERD, lupus who presented to the emergency department with complaint of nausea and vomiting 2 weeks. Patient states that she had gradual onset of nausea with approximately 3-5 episodes of vomiting per day and that time. She admits to associated epigastric abdominal pain which is sharp in nature without radiation. Pain typically proceeds her nausea and retching. Symptoms are frequently brought on after meals but not always. She states that she has never experienced this in the past. She has lost approximately 12 pounds in this time. She has been unable to keep down meals since this started. She does follow with a director nursery school up in [place], , with whom she had a EGD approximately 2 months ago which was normal per patient report. She also had a most recent colonoscopy approximately 2 years ago which she underwent polypectomy which was otherwise normal. In the emergency department, CT of the abdomen was performed and showed a cirrhotic-appearing liver with portal venous hypertension, mild splenomegaly and upper abdominal varices present. Also noted were tiny nonobstructive renal calculi. Vital signs have been unremarkable and lab results significant only for elevated hemoglobin A1c of 10.9%, AST 89, ALT 70, alkaline phosphatase 110. Today during time of interview, patient states that she is feeling a little bit better. The Zofran and Phenergan have improved her symptoms. She states that she was able to keep down breakfast this morning. She denies any additional symptoms of fevers, chills, chest pain, shortness of breath, odynophagia or dysphagia. She does state she has been having mild loose stools in this time. Has not noticed any hematochezia, melena, hematemesis. Emesis is mostly food contents with bile. Past medical history as above Past surgical history including appendectomy. Social history, former smoker and quit 4 years ago. Denies alcohol use due to history of Dangelo, daily marijuana use. Colonoscopy: approximately 2 years ago, polyps EGD: 2 months ago, normal Past Med Surg Social Fam HX - Past Medical History Medical history: arthritis, asthma, cirrhosis (DANGELO), CVA, diabetes (DM Type 2) , fibromyalgia, GERD, kidney stones, liver disease Additional medical history: lupus Psychiatric history: anxiety, other - Past Surgical History Surgical History: appendectomy, cholecystectomy, hysterectomy, other Additional surgical history: tumor removed from neck - Social History Smoking Status: Former smoker (quit in 2013) Smokeless Tobacco Status: No Alcohol use: none (quit in 2015) Drug use: marijuana (Daily) - Family History Father Hx Family Cardiac Disorders: Yes (CAD) Hx Family Respiratory Disorders: Yes (COPD) Hx Family Medical Disorders: Yes (Prostate) Mother Living Status: Hx Family Cardiac Disorders: Yes (CAD) Hx Family Endocrine Disorder: Yes (thyroid) Hx Family Medical Disorders: Yes (DANGELO) - Gastrointestinal Gastrointestinal: Present: abdominal pain, diarrhea, dyspepsia, nausea, vomiting. Absent: bloating, change in bowel habits, constipation, hematochezia , melena - Constitutional Constitutional: weight loss, no fever(s) - EENT Nose, mouth and throat: Absent: dysphagia - Cardiovascular Cardiovascular ROS: Absent: chest pain - Respiratory Respiratory IM: Absent: dyspnea - Neurological ROS Neurological GI: Absent: confusion, dizziness, weakness - Integumentary Integumentary GI: Absent: jaundice, rash - Constitutional Vitals: Temp Pulse Resp BP Pulse Ox 97.6 F 61 16 121/76 98 09/04/17 10:45 09/04/17 10:45 09/04/17 10:45 09/04/17 10:45 09/04/17 10:45 Exam: Gen.: Vitals noted. No acute distress. AAOx3, resting comfortably in bed HEENT: PERRL/EOMI, oropharynx clear, Normocephalic, atraumatic, MMM Cardiac: RRR, no murmur, +S1/S2. Mildly bradycardic Pulmonary: CTA bilaterally, no wheezes, rales or rhonchi, equal chest expansion Abdomen: soft, mildly tender to palpation in epigastric region, BS noted, no guarding, no rebound. MSK: ROM intact, no joint swelling noted Extremities: no BLE edema, nontender calf, no cyanosis or clubbing Neuro: A&Ox3, moves all extremities, no focal deficits Psych: Appropriate mood and behavior Results - Labs CBC & Chem 7: 09/04/17 06:36 09/04/17 08:26 Labs: Last Result Calcium 7.9 mg/dL (8.6-10.3) L 09/04/17 08:26 Troponin I < 0.03 ng/mL (< 0.04) 09/03/17 05:40 Entire Visit Hgb 14.6 g/dL (11.5-15.4) 09/04/17 06:36 Hct 41.1 % (35.3-44.9) 09/04/17 06:36 Total Bilirubin 0.7 mg/dL (0.3-1.0) 09/03/17 05:40 AST 89 Units/L (13-39) H 09/03/17 05:40 ALT 70 Units/L (7-52) H 09/03/17 05:40 Lipase 73 Units/L (11-82) 09/02/17 16:00 Consult Discharge Plan - Plan Referrals: An Victor [Primary Care Provider] - 09/08/17 3:20 pm Prescriptions: Insulin LISPRO [HumaLOG] 0 units SQ TIDAC #1 vial Insulin NPH/REG 70/30 (HUMAN) [Humulin 70/30 Vial] 8 unit SQ BIDAC #1 vial Metoclopramide [Reglan] 5 mg PO BID #60 [id number].liq Nystatin POWDER [Nystop] 1 appl TP TID #1 bottle Omeprazole [PriLOSEC] 40 mg PO BIDAC #60 capsule. <Branden Cochran - Last Filed: 09/09/17 08:26> Date of Encounter: 09/04/17 - Time Spent With Patient Total time spent is greater than 50% in coordination of care (as documented) at patient's floor/unit and/or counseling patient: GI History of Present Illness - Data of Consult Requesting Physician: Salvador Robb MD - Consult Narrative History of present illness: Ms. Dasilva is a 41 year old female - Constitutional Vitals: Temp Pulse Resp BP Pulse Ox 98.1 F 61 14 143/83 100 09/05/17 10:46 09/05/17 10:46 09/05/17 10:46 09/05/17 10:46 09/05/17 10:46 Results - Labs CBC & Chem 7: 09/04/17 06:36 09/05/17 06:26 Labs: Last Result Calcium 8.2 mg/dL (8.6-10.3) L 09/05/17 06:26 Troponin I < 0.03 ng/mL (< 0.04) 09/03/17 05:40 Entire Visit Hgb 14.6 g/dL (11.5-15.4) 09/04/17 06:36 Hct 41.1 % (35.3-44.9) 09/04/17 06:36 Total Bilirubin 0.7 mg/dL (0.3-1.0) 09/03/17 05:40 AST 89 Units/L (13-39) H 09/03/17 05:40 ALT 70 Units/L (7-52) H 09/03/17 05:40 Lipase 73 Units/L (11-82) 09/02/17 16:00 - Attending Attestation 41 year old morbidly obese white female with intractable nausea and vomiting, suspect secondary to gastroparesis. Has varices on CT scan and cirrhosis (work up in progress suspect underlying DANGELO unless proven otherwise. Plan EGD. I examined this patient and my medical decision-making was reviewed with the Resident Physician. I agree with the documented findings, disposition and treatment plan as described except to the extent set forth below.
[2017-09-04] MEDS: *HR* Promethazine 25 MG/ML VIAL IVP PRN (14:00)
[2017-09-04] MEDS: Insulin DETEMIR 100 UNIT/ML X5UNITS SQ SCH (22:02)
[2017-09-05] MEDS: Mag Hydrox/Al Hydrox/Simeth 30 ML UDC PO SCH ×3 (04:45→11:58)
[2017-09-05] MEDS: *HR* Heparin 5,000 UNIT/ML VIAL SQ SCH (06:00)
[2017-09-05] MEDS: Pantoprazole 40 MG VIAL IVP SCH (06:00)
[2017-09-05] MEDS: *HR* Promethazine 25 MG/ML VIAL IVP PRN ×2 (06:09→12:56)
[2017-09-05] MEDS: Ketorolac 15 MG/ML VIAL IVP PRN (06:09)
[2017-09-05] MEDS ORDERED: *HR* Propofol 200 MG/20 ML VIAL IVP ONE (06:26)
[2017-09-05] MEDS ORDERED: Lidocaine -MPF 2% 2 ML VIAL ONE (06:27)
[2017-09-05 07:32] LABS: BUN/Creatinine Ratio 14 (6-26); Blood Urea Nitrogen 8 mg/dL (6-20); Calcium 8.2 mg/dL (8.6-10.3); Carbon Dioxide 21 mEq/L (23-29); Chloride 112 mEq/L (98-107); Glucose 118 mg/dL (70-105); Osmolality,Calculated 285 (280-300); Sodium 138 mEq/L (136-145); eGFR For Non-African Americans > 60 (> 60)
--- NOTE | 2017-09-05 07:39 | Anesthesia Evaluation PreOp ---
Date of Encounter: 09/05/17 Time of Encounter: 07:45 - Past History Planned Operation: EGD Cardiac History: Denies any Significant Hx Pulmonary History: Asthma IMPLEMENT MECHANIC History: CVA Other Medical History: Hepatic (REYES, Cirrhosis), Diabetes Type II (poorly controlled), Other (Morbid Obesity) Anesthesia History: No Prior Anesthetic Complications Alcohol Use: none (quit in 2016) Drug use: marijuana (Daily) Medications and Allergies No Known Home Drugs 09/02/17 [History] 3 Allergy/AdvReac Type Severity Reaction Status Date / Time cephalexin [From Keflex] Allergy Dry Mucus Verified 08/13/17 17:31 Membranes - Meds/Allergy Pre-op Review Medications Reviewed: Yes Allergies Reviewed: Yes Beta Blockers on Current Med List: No Anesthesia Results - Labs 09/04/17 06:36 09/05/17 06:26 - Imaging Additional studies: ECHO 2015 EF 60%, no pulm htn Anesthesia Exam Vital Signs/O2 Sat/Glucose, Most Current Temp Pulse Resp BP Pulse Ox 09/05/17 07:33 97.7 F 52 14 139/83 99 09/05/17 05:19 98.8 F 46 15 117/77 98 Height: 5'2 Weight: 218 lbs NPO (# of Hours): MN Pain Scale: 0 - HEENT Pupil (Motor): Pupils equal, EOMI Mallampati: III Teeth: Normal Oral Opening: Less than or equal to 3 - IMPLEMENT MECHANIC LOC: Oriented IMPLEMENT MECHANIC Motor: Normal RUE, Normal LUE, Normal RLE, Normal LLE, Normal Face IMPLEMENT MECHANIC Sensory: Normal: RUE, LUE, RLE, LLE, Face - Cardiac Rhythm: Regular Murmur: None JVD: No Carotid Bruit: No - Pulmonary Breath Sounds: bilateral Clear Respiratory Effort: Symmetrical Anesthesia Assess/Plan ASA Score: 3 (Asthma NASAH Cirrhosis DM MO) Modified Lamar Scale for Level of Consciousness: Cooperative, oriented, and tranquil Anesthetic Plan: MAC Monitoring Plan: Standard Monitors Recovery Plan: Other (Discussed MAC, agrees to proceed)
[2017-09-05] MEDS ORDERED: Tetracaine/Benzocaine/Butamben 200MG/SPRAY (100SPY/BOT) MM ONE ×2 (07:54→10:08)
[2017-09-05] MEDS: Insulin LISPRO 300 UNITS/3 ML VIAL SQ SCH ×2 (07:54→11:44)
[2017-09-05] MEDS ORDERED: Metoclopramide 10 MG/10 ML UD.LIQ PO SCH (09:30)
[2017-09-05] MEDS: Nystatin POWDER 30 GM BOTTLE TP SCH (10:05)
[2017-09-05] MEDS ORDERED: OXYCODONE Oral CONC 10 MG/0.5 ML ORAL.SYG SL PRN (10:17)
[2017-09-05 10:49] VITALS: BP 143/83
--- NOTE | 2017-09-05 12:41 | Discharge Summary ---
- NOTES TO OUTPATIENT PROVIDER Notes to Outpatient Provider: f/u with GI within a week. f/u with PCP within a week. Orders not resulted at time of discharge: Pending orders 09/02/17 21:22 Occult Blood,Stool [BF] Routine 09/05/17 08:21 Surgical Pathology [PTH] Routine Date of Encounter: 09/05/17 Time of Encounter: 15:51 - Discharge Diagnosis (1) Vomiting Priority: Primary Status: Acute Qualifiers: Vomiting type: unspecified Vomiting Intractability: intractable Nausea presence: with nausea Qualified Code(s): R11.2 - Nausea with vomiting, unspecified (2) Epigastric pain Priority: Primary Status: Acute (3) Liver cirrhosis secondary to nonalcoholic steatohepatitis (REYES) Priority: Secondary Status: Chronic (4) GERD (gastroesophageal reflux disease) Priority: Secondary Status: Chronic Qualifiers: Esophagitis presence: with esophagitis Qualified Code(s): K21.0 - Gastro- esophageal reflux disease with esophagitis (5) Cannabinoid hyperemesis syndrome Priority: Primary Status: Suspected Hospital course: 41-year-old female with past medical history poorly controlled diabetes mellitus, SLE, fibromyalgia, kidney stone, GERD, liver cirrhosis secondary to REYES, and chronic use of marijuana presented with two-week history of nausea, vomiting, and abdominal pain. Patient firmly believes her symptoms were attributed to kidney stones, was seen by a urologist the day before admission and was instructed to come to the ED if symptoms get worse. CT abdomen was done at the ED which revealed liver cirrhosis, and multiple tiny renal stones. She reported a history of chronic use and marijuana. She was also concerned that Lupus was flared up as she noticed rash on her face. She had the GI workup including EGD and colonoscopy within 3 months which she reported were insignificant. Cannabinoid hyperemesis syndrome was suspected initially, however, patient reported never had symptoms until recently. Given her long-term uncontrolled diabetes, gastroparesis was suspected, symptoms was partially relieved with IV regular. GI consulted. EGD was repeated which showed esophagitis, moderate gastritis, and gastroparesis. She was prescribed oral PPI and Reglan. Insulin was also prescribed. Her symptoms have much improved and was able to tolerate oral. She will be discharged home today. She was instructed to check BG daily and f/u with PCP for tight BG control. She will also f/u with GI as scheduled. Discharge discussed with: patient Time spent discussing smoking cessation with patient: more than 10 minutes - Time Spent with Patient Total time spent providing and/or coordinating discharge services: Greater than 30 minutes - Discharge Medications Prescriptions: Insulin LISPRO [HumaLOG] 0 units SQ TIDAC #1 vial Insulin NPH/REG 70/30 (HUMAN) [Humulin 70/30 Vial] 8 unit SQ BIDAC #1 vial Metoclopramide [Reglan] 5 mg PO BID #60 ud.liq Nystatin POWDER [Nystop] 1 appl TP TID #1 bottle Omeprazole [PriLOSEC] 40 mg PO BIDAC #60 capsule. Home Medications: Insulin LISPRO [HumaLOG] 0 units SQ TIDAC #1 vial 09/05/17 [Rx] Insulin NPH/REG 70/30 (HUMAN) [Humulin 70/30 Vial] 8 unit SQ BIDAC #1 vial 09/05 [Rx] Metoclopramide [Reglan] 5 mg PO BID #60 ud.liq 09/05/17 [Rx] Nystatin POWDER [Nystop] 1 appl TP TID #1 bottle 09/05/17 [Rx] Omeprazole [PriLOSEC] 40 mg PO BIDAC #60 capsule. 09/05/17 [Rx] Allergies/Adverse Reactions: 3 Allergy/AdvReac Type Severity Reaction Status Date / Time cephalexin [From Keflex] Allergy Dry Mucus Verified 08/13/17 17:31 Membranes Date of admission: 09/02/17 20:09 Primary care physician: An Victor Consults: 09/02/17 21:28 Consult to Nutrition [CONS] Routine Comment: Consulting Provider: NUTRITION Reason for Dietary Consult: MST Score 09/03/17 13:18 Consult to Unix System Administrator [CONS] Routine Reason for SW Consult: Financial concerns for medications 09/04/17 09:05 Consult to Gastroenterology [CONS] Routine Consulting Provider: Gastroenterology Chika Reason for Consult: gastroparesis Call Completed: Yes Anticipated date of discharge: 09/05/17 - Constitutional Vitals: Temp Pulse Resp BP Pulse Ox 98.1 F 61 14 143/83 100 09/05/17 10:46 09/05/17 10:46 09/05/17 10:46 09/05/17 10:46 09/05/17 10:46 General appearance: Present: cooperative, A&O X 3, pleasant, no acute distress, obese, answers questions appropriately Exam: PHYSICAL EXAMINATION: GENERAL APPEARANCE: The patient is alert, oriented and in no acute distress. HEENT: Head is normocephalic. The sinuses are nontender. Pupils are equal and reactive. The nares are patent. Oropharynx clear without lesions. NECK: Supple without lymphadenopathy. HEART: Regular rate and rhythm. LUNGS: No crackles or wheezes are heard. ABDOMEN: Soft, nontender, nondistended with good bowel sounds heard. Inguinal area is normal. EXTREMITIES: Without cyanosis, clubbing or edema. NEUROLOGICAL: Gross nonfocal. SKIN: Warm and dry without any rash. - Patient Status Disposition: Home, Self-Care Condition: Good Functional capacity at discharge: independent ambulation Overall status at discharge: patient is progressing back to baseline - Discharge Instructions Follow Up With: An Victor [Primary Care Provider] - 09/08/17 3:20 pm - Diet and Activity Activity: increase activity as tolerated Diet: diabetic diet
--- NOTE | 2017-09-05 12:51 | Anesthesia Evaluation Post Op ---
Date of Encounter: 09/05/17 Time of Encounter: 08:30 - Vital Signs Vital Signs: Vital Signs/O2 Sat/Glucose, Most Current Temp Pulse Resp BP Pulse Ox 09/05/17 10:46 98.1 F 61 14 143/83 100 09/05/17 09:25 97.9 F 57 14 138/79 98 - Lungs Lungs: Clear Ascult./Percussion - Airway Airway: Non-obstructed - Cardiovascular Regular Rate - Mental Status Mental Status: Alert & Oriented, Answers Appropriately - Pain Pain Scale: 0 - Nausea Vomiting Nausea Vomiting: Not Present - Hydration Hydration: NPO - Discharge PostOp Status: Transfer Patient to floor
[2017-09-05] MEDS ORDERED: Insulin NPH/REG 70/30 100 UNIT/ML (x5UNIT) SQ SCH ×2 (16:30)
== END 2017-09-05 15:43 | disposition home or self-care (01) ==
LOC: EMEROO 14:50 → 3ANU 14:50
PROVIDERS: ADMIT Family Medicine; ATTEND Family Medicine
PROC: ENDOEBX (2017-09-05 17:30)